=== PATIENT | female | born 1995 | race Caucasian/White ===

== ENCOUNTER → 2019-04-24 11:17 | Outpatient (CLI) | payer OTHER, SELFPAY ==
[2019-04-24 12:15] LABS: Add Manual Diff / Slide Review NO; Basophils Absolute Auto 100 /uL (0-100); Basophils Percent Auto 1.1 % (0-2); Eosinophils Absolute Auto 100 /uL (0-450); Eosinophils Percent Auto 0.9 % (2-4); Hematocrit 43.4 % (36-46); Hemoglobin 14.4 g/dL (12.0-16.0); Lymphocytes Absolute Auto 2000 /uL (1100-4500); Lymphocytes Percent Auto 26.5 % (25-40); Mean Corpuscular HGB Conc 33.3 % (30-36); Mean Corpuscular Hemoglobin 29.1 PG (26-34); Mean Corpuscular Volume 87.4 fL (80-100); Monocytes Absolute Auto 600 /uL (0-900); Monocytes Percent Auto 8.2 % (3-14); Neutrophils Absolute Auto 4900 /uL (1500-7000); Neutrophils Percent Auto 63.3 % (50-75); Platelet Count 301 X10^3/uL (150-400); Red Blood Cell Count 4.96 X10^6/uL (4.0-5.2); Red Cell Distribution Width 13.9 % (11.6-14.8); White Blood Cell Count 7.7 X10^3/uL (4.5-11.0)
[2019-04-24 13:13] LABS: Alanine Aminotransferase 25 IU/L (<35); Albumin 4.6 g/dL (3.5-5.0); Albumin Globulin Ratio 1.4 (1.0-2.8); Alkaline Phosphatase 58 U/L (38-126); Aspartate Aminotransferase 30 IU/L (14-36); BUN Creatinine Ratio 19.1 (6-22); Bilirubin Total 0.6 mg/dL (0.2-1.3); Blood Urea Nitrogen 13 mg/dL (7-17); Calcium 9.9 mg/dL (8.4-10.2); Carbon Dioxide 28 mmol/L (22-32); Chloride 103 mmol/L (98-107); Estimated Glomerular Filt Rate > 60.0 mL/min (>60); Globulin 3.4 g/dL (1.7-4.1); Glucose 86 mg/dL (70-100); HEMOLYSIS < 15 (0-50); Potassium 4.7 mmol/L (3.4-5.1); Sodium 139 mmol/L (137-145)
[2019-04-24 13:44] LABS: TSH w/ Reflex to FT4 1.04 uIU/mL (0.47-4.68)
== END ==
PROVIDERS: PCP Family Medicine; Referring Provider Family Medicine; Visit Provider Family Medicine
DX: F32.9 Major depressive disorder, single episode, unspecified (principal); G47.9 Sleep disorder, unspecified
CPT/HCPCS: 36415; 80053; 84443; 85025

== ENCOUNTER → 2019-06-10 08:33 | Outpatient (CLI) | payer OTHER, SELFPAY ==
--- NOTE | 2019-06-10 08:35 | DI.RAD.S_ITS ---
PROCEDURE: XR ANKLE LT MIN 3V INDICATIONS: left ankle pain TECHNIQUE: 3 views of the ankle were acquired. COMPARISON: None. FINDINGS: Bones: No fractures or dislocations. Ankle mortise is normally aligned. No suspicious bony lesions. Soft tissues: No tibiotalar joint effusion. Achilles tendon appears normal. IMPRESSION: No visualized acute fracture or dislocation. However, if clinical concern and/or pain persist, short interval imaging followup in 7-10 days is recommended, as occult injury cannot be definitively excluded. Dictated by: Jessica Vivas M.D. on 06/10/2019 at 8:53 Approved by: Jessica Vivas M.D. on 06/10/2019 at 8:53
== END ==
PROVIDERS: PCP Family Medicine; Referring Provider Family Medicine; Visit Provider Family Medicine
DX: S99.912A Unspecified injury of left ankle, initial encounter (principal); M25.572 Pain in left ankle and joints of left foot; X58.XXXA Exposure to other specified factors, initial encounter
CPT/HCPCS: 73610

== ENCOUNTER → 2020-10-08 09:04 | Outpatient (CLI) | payer OTHER, SELFPAY ==
[2020-10-08 09:50] LABS: Add Manual Diff / Slide Review NO; Basophils Absolute Auto 100 /uL (0-100); Basophils Percent Auto 1.5 % (0-2); Eosinophils Absolute Auto 0 /uL (0-450); Eosinophils Percent Auto 0.5 % (2-4); Hematocrit 38.6 % (36-46); Hemoglobin 12.6 g/dL (12.0-16.0); Lymphocytes Absolute Auto 1800 /uL (1100-4500); Lymphocytes Percent Auto 26.6 % (25-40); Mean Corpuscular HGB Conc 32.8 % (30-36); Mean Corpuscular Hemoglobin 28.1 PG (26-34); Mean Corpuscular Volume 85.6 fL (80-100); Monocytes Absolute Auto 600 /uL (0-900); Monocytes Percent Auto 8.2 % (3-14); Neutrophils Absolute Auto 4300 /uL (1500-7000); Neutrophils Percent Auto 63.2 % (50-75); Platelet Count 250 X10^3/uL (150-400); Red Cell Distribution Width 14.9 % (11.6-14.8); White Blood Cell Count 6.8 X10^3/uL (4.5-11.0)
[2020-10-08 10:04] LABS: Alanine Aminotransferase 16 IU/L (<35); Albumin 3.9 g/dL (3.5-5.0); Albumin Globulin Ratio 1.4 (1.0-2.8); Alkaline Phosphatase 57 U/L (38-126); Aspartate Aminotransferase 27 IU/L (14-36); BUN Creatinine Ratio 14.3 (6-22); Bilirubin Total 0.6 mg/dL (0.2-1.3); Blood Urea Nitrogen 10 mg/dL (7-17); Calcium 8.9 mg/dL (8.4-10.2); Carbon Dioxide 26 mmol/L (22-32); Chloride 106 mmol/L (98-107); Estimated Glomerular Filt Rate > 60.0 mL/min (>60); Globulin 2.8 g/dL (1.7-4.1); Glucose 84 mg/dL (70-100); HEMOLYSIS < 15 (0-50); Potassium 4.2 mmol/L (3.4-5.1); Sodium 137 mmol/L (137-145); Total Protein 6.7 g/dL (6.3-8.2)
[2020-10-08 10:18] LABS: Vitamin D 25 Hydroxy (D3) 45.5 ng/mL (30.0-100.0)
[2020-10-08 10:33] LABS: TSH w/ Reflex to FT4 0.76 uIU/mL (0.47-4.68)
== END ==
PROVIDERS: PCP Family Medicine; Referring Provider Family Medicine; Visit Provider Family Medicine
DX: R53.83 Other fatigue (principal)
CPT/HCPCS: 36415; 80053; 82306; 84443; 85025

== ENCOUNTER → 2020-10-17 14:39 | Outpatient (CLI) | payer OTHER, SELFPAY | PROVIDERS: PCP Family Medicine; Referring Provider Nurse Practitioner; Visit Provider Nurse Practitioner | DX: N34.3 Urethral syndrome, unspecified (principal) | CPT/HCPCS: 87086 ==

== ENCOUNTER 2020-12-09 09:54 | Emergency (ER) | payer OTHER, SELFPAY ==
[2020-12-09 10:14] VITALS: BP 139/80; PULSE 78; RESP 15; TEMP 37.1; O2SAT 100; BMI 25.8
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
[2020-12-09 11:19] VITALS: BP 119/75; PULSE 90; RESP 18; O2SAT 99
== END 2020-12-09 11:21 | disposition home or self-care (01) ==
PROVIDERS: Emergency Provider Emergency Medicine; PCP Family Medicine
DX: M53.3 Sacrococcygeal disorders, not elsewhere classified (principal); Y04.2XXA Assault by strike against or bumped into by another person, initial encounter
CPT/HCPCS: 72220; 99283

== ENCOUNTER → 2023-10-02 08:16 | Outpatient (CLI) | payer BC, SELFPAY ==
[2023-10-02 10:32] LABS: Urine N gonorrhoeae NOT DETECTED
[2023-10-02 10:37] LABS: Urine Chlamydia NOT DETECTED
== END ==
PROVIDERS: PCP Registered Nurse Diabetes Educator; Referring Provider Physician Assistant Medical; Visit Provider Physician Assistant Medical
DX: N89.8 Other specified noninflammatory disorders of vagina (principal)
CPT/HCPCS: 87086; 87210; 87491; 87591

== ENCOUNTER → 2023-10-02 08:30 | Outpatient (CLI) | payer BC, SELFPAY ==
[2023-10-02 12:22] LABS: HIV 1 & 2 Ab/Ag 4th Gen Combo NEGATIVE (NEGATIVE); Hep C Virus Ab w/Reflex Quant NEGATIVE s/c (NEGATIVE)
[2023-10-03 07:10] LABS: RPR Screen Non Reactive (Non Reactive)
== END ==
PROVIDERS: PCP Registered Nurse Diabetes Educator; Referring Provider Physician Assistant Medical; Visit Provider Physician Assistant Medical
DX: Z11.3 Encounter for screening for infections with a predominantly sexual mode of transmission (principal)
CPT/HCPCS: 36415; 86592; 86803; 87086; 87210; 87389; 87491; 87591

== ENCOUNTER → 2023-10-30 14:30 | Outpatient (CLI) | payer BC, SELFPAY | PROVIDERS: PCP Registered Nurse Diabetes Educator; Visit Provider Registered Nurse Diabetes Educator | DX: N76.0 Acute vaginitis (principal); B96.89 Other specified bacterial agents as the cause of diseases classified elsewhere; N89.8 Other specified noninflammatory disorders of vagina | CPT/HCPCS: 87210; 87220 ==

== ENCOUNTER 2024-03-13 11:28 | Day surgery (SDC) | payer OTHER, SELFPAY ==
[2024-03-10 13:50] VITALS: BMI 24.3
--- NOTE | 2024-03-13 | PATH_ITS ---
[facility] Accession Number: [id number] No. of containers..01 Tissue . 01 Material submitted: . fallopian tube - BILATERAL FALLOPIAN TUBES . 01 Diagnosis: BILATERAL FALLOPIAN TUBES, BILATERAL SALPINGECTOMY: Benign fallopian tubes without pathologic abnormalities. Negative for atypia or malignancy. MRV 03/17/2024 1410 Local . 01 Electronically signed: . Nichelle Martinez MD, Pathologist NPI- [id number] . 01 Gross description: . Received in formalin with two patient identifiers and bilateral fallopian tubes, are two unoriented, fimbriated fallopian tubes, 7.0 x 0.9 cm and 6.5 x 0.8 cm. Both tubes have violaceous, smooth serosa with cystic structures up to 0.5 cm in greatest dimension filled with clear serous fluid. The lumens are stellate and unremarkable. Wire Stitcher Operator sections to include one-half of bisected fimbriae and cross sections are submitted as follows: . A1: Longer fallopian tube. A2: Rew fallopian tube. ([id number]) /MRV 03/14/2024 1859 Local . 01 Pathologist provided ICD-10: Z30.2 . 01 CPT . 901442 Specimen Comment: A courtesy copy of this report has been sent to [phone] Performed at: [address] [address], [place], [place] [id number] MD Sudheer Ramsey MD Phone: [phone]
--- NOTE | 2024-03-13 09:01 | PM.PREOP ---
Pre-operative Note COVID-19 COVID-19 status: Not tested Interval Note History & Physical reviewed/Exam performed by Physician: Yes Changes to H&P: No
[2024-03-13] MEDS: ACETAMINOPHEN 325 MG TABLET 975 MG PO (12:00)
[2024-03-13] MEDS: SCOPOLAMINE 1 PATCH TOP (12:02)
[2024-03-13] MEDS: LACTATED RINGERS 1,000 ML 42 ML IV ×2 (12:03→12:22)
[2024-03-13] MEDS: FAMOTIDINE 20 MG/2 ML VIAL IV (12:04)
[2024-03-13 12:09] VITALS: BP 120/76; PULSE 76; RESP 14; O2SAT 98; BMI 24.3
--- NOTE | 2024-03-13 12:37 | SUR.OPER ---
Lithotomy on padded OR bed, head on pillow, arms tucked, gel pads placed under arms. Legs secured in padded yellow fins stirrups.
[2024-03-13] MEDS: BUPIVACAINE 0.5% W/ EPI (PF) 30 ML VIAL INJ (12:46)
--- NOTE | 2024-03-13 13:22 | P.OP_ITS ---
Operative Date/Time/Diagnoses Date of procedure: 03/13/24 Time of procedure: 12:45 Pre-op diagnosis: Request for sterilization Post-op diagnosis: other (Same as above, minimal pelvic peritoneal endometriosis) Procedure & Clinicians Procedure: Procedures Operation Date: 03/13/24 12:45 Actual Procedure Side Surgeon p Laparoscopic Bilateral Salpingectomy s Fulguration of pelvic peritoneal endometrial implants Bilateral Bernardo Flores MD Indications: Eliica is a 28-year-old nulligravida, LMP 11/01/2023 who presents today to discuss surgical sterilization. Patient experienced menarche at age 9 and has had regular predictable periods since that time. Her Paps have always been normal. She has a nulligravida by choice and is in a stable relationship with her partner fully aware and understanding/supportive of her desire for sterilization. Patient counseled regarding alternatives, risks, benefits, and potential complications associated with laparoscopic bilateral salpingectomy. Patient understands that this is a procedure which will result in her permanently and irreversibly being unable to bear children without benefit of assisted reproductive technology. In addition patient understands that there is a small (1-03/999) risk of failure to prevent and should such a occur, it will most likely be ectopic in location. With full understanding of the above, patient expresses desire to move forward with sterilization and presents today for her scheduled surgery. Surgeon: Bernardo Flores Anesthesia Type: General Operative Notes Findings: The uterus and fallopian tubes appeared to be normal. There is a superficial implant of endometriosis in the anterior cul-de-sac. In addition there were multiple small superficial implants of endometriosis in the posterior cul-de-sac. All of the endometriosis was destroyed with judicious use of bipolar current. The left ovary contains a corpus luteum cyst. The right ovary is completely normal with the exception 3 very small superficial endometriosis implants on the surface of the right ovary. These too were destroyed with judicious use of bipolar current. The remainder of the pelvis and abdomen normal to laparoscopic inspection. Closure Type: primary Specimen(s): left tube and right tube Estimated blood loss (mL): 5 Blood products transfused: none Procedure in detail: With the patient under satisfactory general anesthesia in the modified dorsal lithotomy position, the perineum, vagina, and abdomen were prepped and draped for IUD removal and laparoscopic bilateral salpingectomy. A pre-surgical safety time-out was then taken in accordance with [facility] Main OR protocols. The umbilicus was then infiltrated with 0.5% Marcaine with epinephrine and 1 cm vertical incision was made in the inferior aspect of the umbilicus. Veress needle was used to insufflate the abdomen with carbon dioxide and once appropriately insufflated, 5 mm bladeless trocar and sleeve were inserted through the incision. Proper placement of the sleeve was confirmed with laparoscopic visualization and insufflation of the abdomen continued. A 2nd and 3rd 5 mm laparoscopic port were placed in the right and left mid quadrants using a similar technique and using a 3 puncture technique, the abdomen and pelvis were visualized with the findings as noted above. The distal aspect of the left fallopian tube was then grasped with a grasping forceps and using a Power Seal d evice, fimbria ovarica was coagulated and divided the dissection using the Power Seal continuing across the mesosalpinx to the cornua where the base fallopian tube was coagulated and divided. The left fallopian tube was then removed through one of the ports and submitted pathologic specimen. Attention was then turned to the right adnexa with distal tube grasped with a grasping forcep. The Power Seal device was then used to coagulate fimbria ovarica and the dissection was carried across the mesosalpinx to the cornua where the fallopian tube on the right side was amputated at the cornua following coagulation proximal tube the Power Seal device. Pelvis was inspected with the findings as noted above and all the areas of suspected endometriosis were destroyed using bipolar current. There were no other abnormalities noted following bilateral salpingectomy. The pneumoperitoneum was then vented and the ports removed from the abdominal wall. Port incisions were then closed with 4-0 Monocryl using inverted interrupted stitches and skin glue was applied. Appropriate dressings were then applied, patient was awakened, and transferred to the PACU for a period of observation after having tolerated the procedure well. Complications: none Post-operative Condition: stable Disposition: PACU Plan for aftercare: Routine postoperative care with follow-up scheduled for 2 weeks after surgery.
[2024-03-13 13:23] VITALS: BP 95/59; PULSE 67; RESP 18; TEMP 36.6; O2SAT 100
[2024-03-13 13:28] VITALS: BP 94/53; PULSE 63; RESP 18; O2SAT 100
[2024-03-13 13:33] VITALS: BP 100/63; PULSE 76; RESP 18; O2SAT 99
[2024-03-13 13:38] VITALS: BP 99/70; PULSE 66; RESP 12; TEMP 36.7; O2SAT 100
[2024-03-13 13:44] VITALS: BP 110/58; PULSE 63; RESP 12; TEMP 36.4; O2SAT 100
== END 2024-03-13 14:08 | disposition home or self-care (01) ==
PROVIDERS: PCP Registered Nurse Diabetes Educator; Referring Provider Obstetrics & Gynecology; Visit Provider Obstetrics & Gynecology
PROC: 0UT74ZZ Resection of Bilateral Fallopian Tubes, Percutaneous Endoscopic Approach (ICD-10-PCS; CPT 58661; principal; 2024-03-13 12:45)
DX: N80.329 Endometriosis of the posterior cul-de-sac, unspecified depth (principal); Z30.2 Encounter for sterilization; N80.319 Endometriosis of the anterior cul-de-sac, unspecified depth; N80.101 Endometriosis of right ovary, unspecified depth; N83.12 Corpus luteum cyst of left ovary
CPT/HCPCS: 58662; 58661; 81025; J1100; J1885; J2250; J2405; J2704; J3010; J3490